=== PATIENT | female | born 1950 | race Two or more races ===

== ENCOUNTER 2017-06-16 07:08 | Day surgery (SDC) | payer OTHER | END 2017-06-16 12:30 | disposition home or self-care (01) | LOC: AMB-ENDOS 07:08 → ADM 13:00 | DX: D12.8 Benign neoplasm of rectum (principal); K64.8 Other hemorrhoids ==

== ENCOUNTER 2018-03-30 08:47 | Day surgery (SDC) | payer OTHER | END 2018-03-30 14:50 | disposition home or self-care (01) | LOC: AMB-ENDOS 08:47 | DX: K62.1 Rectal polyp (principal) ==

== ENCOUNTER 2018-10-26 07:59 | Day surgery (SDC) | payer OTHER | END 2018-10-26 12:35 | disposition home or self-care (01) | LOC: AMB-ENDOS 07:59 | DX: K62.1 Rectal polyp (principal); K64.8 Other hemorrhoids ==

== ENCOUNTER 2020-12-25 08:11 | Day surgery (SDC) | payer OTHER | END 2020-12-25 13:50 | disposition home or self-care (01) | LOC: AMB-ENDOS 08:11 | PROVIDERS: ATTEND Colon & Rectal Surgery | DX: D12.0 Benign neoplasm of cecum (principal); K64.8 Other hemorrhoids; Z20.822 Contact with and (suspected) exposure to COVID-19; Z12.11 Encounter for screening for malignant neoplasm of colon ==